=== PATIENT | female | born 1975 ===

== ENCOUNTER 2019-04-05 11:37 | Emergency (ER) | payer SELFPAY ==
[2019-04-05 11:55] VITALS: TEMP 97.2
[2019-04-05] MEDS ORDERED: DIAZEPAM 5MG/ML SOL IV ONE (12:03)
[2019-04-05] MEDS ORDERED: KETOROLAC TROMETHAMINE 30 MG/ML SOL IV ONE (12:03)
[2019-04-05] MEDS ORDERED: KETOROLAC TROMETHAMINE 30 MG/ML SOL ONE (12:06)
[2019-04-05 12:46] VITALS: RESP 20
[2019-04-05] MEDS: SODIUM CHLORIDE 0.9% FLUSH 10 ML SOL IV PRN ×2 (12:52→14:46)
[2019-04-05] MEDS ORDERED: SODIUM CHLORIDE 0.9% 1000ML 1,000 ML IV ONE (12:53)
[2019-04-05] MEDS ORDERED: HYDROMORPHONE 1 MG/ML SYRINGE IV ONE (12:53)
[2019-04-05] MEDS ORDERED: HYDROMORPHONE 1 MG/ML SYRINGE ONE ×2 (12:59→14:37)
[2019-04-05] MEDS ORDERED: HYDROMORPHONE 1 MG/ML SYRINGE IV PRN (14:33)
[2019-04-05 16:14] VITALS: BP 134/82; PULSE 78; O2SAT 78
== END 2019-04-05 15:20 | disposition home or self-care (01) | DRG 552 ==
LOC: ED 11:37
DX: M54.5 Low back pain (principal); M79.605 Pain in left leg; G89.29 Other chronic pain
CPT/HCPCS: 72070; 72120; 96365; 96374; 96375; 99283; 99285; J1885; J1170